=== PATIENT | male | born 1960 | race Caucasian/White ===

== ENCOUNTER 2024-05-04 08:14 | Outpatient (CLI) | payer MEDICARE, MEDICAID ==
[~2024-05-04 08:14] MED LIST: DOCU-361 PO; ESOM40CA PO; HYDR1TAB PO; IBUP-1984 PO; LISI-230 PO
== END 2024-05-04 23:59 | disposition home or self-care (01) ==
LOC: RAD 08:14
PROVIDERS: ATTEND Family Medicine
DX: R07.9 Chest pain, unspecified (principal); F17.290 Nicotine dependence, other tobacco product, uncomplicated
CPT/HCPCS: 71046